=== PATIENT | female | born 1955 | race Caucasian/White ===

== ENCOUNTER 2018-02-20 06:42 | Inpatient (IN) | payer OTHER ==
[2018-02-20] MEDS: LACTATED RINGER'S 1,000 ML IV* (06:00)
[2018-02-20] MEDS ORDERED: NEOSTIGMINE 3 MG/3 ML SYRINGE (06:46)
[2018-02-20] MEDS ORDERED: FENTAnyl 50 MCG/ML VIAL (06:46)
[2018-02-20] MEDS ORDERED: MIDAZOLAM 1 MG/ML 2 ML INJ (06:46)
[2018-02-20] MEDS ORDERED: GLYCOPYRROLATE 0.4 MG INJ (06:46)
[2018-02-20] MEDS ORDERED: ROCURONIUM 50 MG INJ (06:46)
[2018-02-20] MEDS ORDERED: PROPOFOL 20 ML (06:46)
[2018-02-20] MEDS ORDERED: LIDOCAINE 2% (SDV) 5 ML INJ (06:46)
[2018-02-20] MEDS ORDERED: SUCCINYLCHOLINE CHLORIDE 100 MG/5 ML SYG IV (06:48)
[2018-02-20] MEDS ORDERED: DEXAMETHASONE 4 MG/ML 1 ML INJ (06:54)
[2018-02-20] MEDS ORDERED: ONDANSETRON 4 MG INJ (06:54)
[2018-02-20] MEDS ORDERED: CEFAZOLIN 1 GM INJ (07:00)
[2018-02-20] MEDS ORDERED: ROPIVACAINE 0.5 % 30 ML VIAL (07:12)
[2018-02-20] MEDS: CA CHLORIDE 10% 10 ML SYRINGE (07:13)
[2018-02-20] MEDS ORDERED: BUPIVACAINE 0.5%/EPI (SDV) 30 ML INJ (07:13)
[2018-02-20] MEDS: POLYMYXIN/BACITRACIN 1L IRRIG (07:13)
[2018-02-20] MEDS: THROMBIN 5000 UNIT VIAL (07:13)
[2018-02-20] MEDS: GABAPENTIN 300 MG CAP PO (07:36)
[2018-02-20] MEDS: traMADol 50 MG TAB PO (07:36)
[2018-02-20] MEDS: DEXAMETHASONE 1 MG TAB PO (07:36)
[2018-02-20] MEDS ORDERED: morphine (1 MG/ML) 10ML SYRINGE IV ×4 (08:00→11:00)
[2018-02-20] MEDS ORDERED: ONDANSETRON 4 MG INJ IV ×2 (10:00→11:00)
[2018-02-20] MEDS ORDERED: morphine 2 MG INJ IV (10:00)
[2018-02-20] MEDS ORDERED: DIPHENHYDRAMINE 50 MG INJ IV (10:00)
[2018-02-20] MEDS ORDERED: MAGNESIUM HYDROXIDE 30ML CUP PO (10:00)
[2018-02-20] MEDS ORDERED: ZOLPIDEM 5 MG TAB PO (10:00)
[2018-02-20] MEDS ORDERED: MEPERIDINE 25 MG INJ (10:35)
[2018-02-20] MEDS ORDERED: LABETALOL HCL 20MG INJ IV (11:00)
[2018-02-20] MEDS ORDERED: EPHEDrine SULFATE 50 MG/5 ML SYG IV (11:00)
[2018-02-20] MEDS ORDERED: FENTAnyl 50 MCG/ML VIAL IV ×2 (11:00)
[2018-02-20] MEDS ORDERED: HYDROmorphONE 1 MG/5 ML IV SYRINGE IV ×2 (11:00)
[2018-02-20] MEDS: TRANEXAMIC ACID 1,000 MG in DEXTROSE 5% 100 ML IVPB (11:09)
[2018-02-20] MEDS: CEFAZOLIN 2 GM/50 ML (PMX) 50 ML IVPB (11:09)
[2018-02-20] MEDS: BUPIVACAINE 0.5% (SDV) 30 ML, EPINEPHrine 0.3 MG, KETOROLAC 30 MG, CLONIDINE 100 MCG, S... IRR (11:09)
[2018-02-20] MEDS: CEFAZOLIN 1 GM/50 ML (PMX) 50 ML IVPB ×2 (11:14→18:53)
[2018-02-20] MEDS: DEXAMETHASONE 2 MG TAB PO ×2 (11:14→18:53)
[2018-02-20] MEDS: TRANEXAMIC ACID 1,000 MG in DEXTROSE 5% 100 ML IV (11:23)
[2018-02-20] MEDS: MEPERIDINE 25 MG INJ IV (11:29)
[2018-02-20] MEDS: ACETAMINOPHEN 500 MG TAB PO ×2 (14:53→20:19)
[2018-02-20] MEDS: PREGABALIN 25 MG CAP PO (20:19)
[2018-02-20] MEDS: OXYCODONE/ACETAMINOPHEN (5/325) TAB PO (20:19)
[2018-02-20] MEDS: ATORVASTATIN 10 MG TAB PO (20:33)
[2018-02-20] MEDS: SENNA/DOCUSATE NA (8.6MG/50MG) TAB PO (20:33)
[2018-02-21] MEDS: morphine 2 MG INJ IV ×2 (00:30→04:26)
[2018-02-21] MEDS: DEXAMETHASONE 2 MG TAB PO ×2 (00:30→06:00)
[2018-02-21] MEDS: CEFAZOLIN 1 GM/50 ML (PMX) 50 ML IVPB (02:02)
[2018-02-21] MEDS: OXYCODONE/ACETAMINOPHEN (5/325) TAB PO ×2 (02:03→07:35)
[2018-02-21] MEDS: LACTATED RINGER'S 1,000 ML IV* (06:00)
[2018-02-21] MEDS: LEVOTHYROXINE 150 MCG TAB PO (07:00)
[2018-02-21] MEDS: PREGABALIN 25 MG CAP PO (08:21)
[2018-02-21] MEDS: SENNA/DOCUSATE NA (8.6MG/50MG) TAB PO (08:22)
[2018-02-21] MEDS: SERTRALINE 100 MG TAB PO (08:22)
[2018-02-21] MEDS: ESTROGENS CONJUGATED 0.625 MG TAB PO (08:22)
== END 2018-02-21 10:50 | disposition home or self-care (01) | DRG 483 ==
LOC: REC 06:42 → MS1 11:45
PROC: 0RRK0JZ Replacement of Left Shoulder Joint with Synthetic Substitute, Open Approach (ICD-10-PCS; principal; 2018-02-20 08:30)
PROC: 0LS40ZZ Reposition Left Upper Arm Tendon, Open Approach (ICD-10-PCS; 2018-02-20 08:30)
DX: M19.012 Primary osteoarthritis, left shoulder (principal); M65.812 Other synovitis and tenosynovitis, left shoulder; M66.812 Spontaneous rupture of other tendons, left shoulder; M25.612 Stiffness of left shoulder, not elsewhere classified; I10 Essential (primary) hypertension; F17.210 Nicotine dependence, cigarettes, uncomplicated; E78.5 Hyperlipidemia, unspecified; E03.9 Hypothyroidism, unspecified
CPT/HCPCS: 73030; 86999; 97166

== ENCOUNTER 2018-11-20 07:29 | Day surgery (SDC) | payer OTHER ==
[2018-11-20] MEDS ORDERED: NEOMYC/POLYMYX/BACIT 30 GM OINT (11:55)
[2018-11-20] MEDS ORDERED: MIDAZOLAM 1 MG/ML 2 ML INJ (12:11)
[2018-11-20] MEDS ORDERED: LIDOCAINE 2% (SDV) 5 ML INJ (12:11)
[2018-11-20] MEDS ORDERED: ROCURONIUM 50 MG INJ (12:11)
[2018-11-20] MEDS ORDERED: PROPOFOL 20 ML (12:11)
[2018-11-20] MEDS ORDERED: FAMOTIDINE 20 MG INJ (13:21)
[2018-11-20] MEDS ORDERED: ONDANSETRON 4 MG INJ (13:21)
[2018-11-20] MEDS ORDERED: SUGAMMADEX SODIUM 200 MG/2 ML VIAL IV (13:21)
[2018-11-20] MEDS: COCAINE 4% 4 ML TOP (13:53)
[2018-11-20] MEDS: LIDOCAINE 1%/EPI 30 ML INJ (13:53)
[2018-11-20] MEDS: HYDROmorphONE 1 MG/5 ML IV SYRINGE IV ×3 (13:55→15:38)
[2018-11-20] MEDS ORDERED: HYDROCODONE/APAP (7.5/325) TAB PO (14:30)
[2018-11-20] MEDS ORDERED: ACETAMINOPHEN 500 MG TAB (14:32)
[2018-11-20] MEDS: ACETAMINOPHEN 500 MG TAB PO (14:35)
== END 2018-11-20 16:30 | disposition home or self-care (01) ==
LOC: SDS 07:29
DX: J32.9 Chronic sinusitis, unspecified (principal); J34.3 Hypertrophy of nasal turbinates; E78.5 Hyperlipidemia, unspecified; F32.9 Major depressive disorder, single episode, unspecified; E03.9 Hypothyroidism, unspecified
CPT/HCPCS: 30140; 88304